=== PATIENT | female | born 1960 | race Caucasian/White ===

== ENCOUNTER 2017-04-12 17:07 | Emergency (ER) | payer BC ==
[2017-04-12 17:47] LABS: Hematocrit 39.8 % (37.0-47.0); Hemoglobin 13.9 gm/dL (12.5-16.0); Mean Cell Volume 92.1 fl (78-100); Mean Corpuscular Hemoglobin 32.2 pg (27-31); Mean Corpuscular Hgb Conc 34.9 g/dl (32-36); Mean Platelet Volume 9.7 fl (6.0-9.5); Neutrophil # 6.5 K/mm3 (1.3-6.0); Neutrophil % 65.5 % (42-75.0); Platelet Count 279 K/mm3 (150-450); Red Blood Count 4.32 M/mm3 (4.2-5.4); Red Cell Distribution Width 12.8 % (11.5-14.0); White Blood Count 9.9 K/mm3 (4.0-10.5)
[2017-04-12] MEDS ORDERED: ASPIRIN 81 MG TAB.CHEW PO ONE (17:49)
--- NOTE | 2017-04-12 17:52 | ERNOTE ---
Chest Pain/Cardiac HPI Chief Complaint: Chest Pain Time Seen by Provider: 04/12/17 17:43 Source: patient Exam Limitations: no limitations Immunizations: IMMUNIZATION HX Immunizations Up to Date Yes History of Influenza Vaccine Yes Hx Pneumococcal Vaccination No Allergies/Adverse Reactions: Allergies butorphanol tartrate [From Stadol] Allergy (Severe, Verified 02/05/16 18:45) Anaphylaxis Penicillins Allergy (Verified 02/05/16 18:45) codeine [Codeine] Adverse Reaction (Mild, Verified 02/05/16 18:45) Nausea intollerance Home Medications: HOME MEDICATIONS Metoprolol Tartrate 100 tab PO BID 08/29/12 [Last Taken Unknown] Lamotrigine BID 10/31/15 [Last Taken Unknown] Narrative: Patient was sitting in a chair after getting back from taking her mother to the doctors office when she started to have left sided chest pain, the pain was sharp and throbbing, lasted a few minutes, resolved now Date (Duration): 04/12/17 Time (Timing): 16:30 Severity/Quality: moderate, sharp Location: left chest Chest Pain Radiation: other - head Activities at Onset: none, rest Nitro Today/Relief: no nitro taken today Aspirin Treatment Today: no aspirin today Associated Symptoms: Present: dizziness. Absent: cough, shortness of breath, diaphoresis, nausea, vomiting Prior Chest Pain/Cardiac Workup: Reports: no prior cardiac workup Review of Systems - Review of Systems Constitutional: Absent: recent illness, fever Respiratory: Absent: shortness of breath Cardiology: Present: See HPI, chest pain Gastrointestinal/Abdominal: Present: See HPI, nausea Genitourinary: Present: no symptoms reported Musculoskeletal: Absent: back pain Skin: Absent: rash Neurological: Absent: headache, weakness, numbness - Patient's Past Medical History Patient History - Medical: Arthritis, Chronic Pain, Other Patient History - Cardiac/Respiratory: Hypertension Patient History - Cancer: No Hx of Cancer Patient History - Surgical Procedures: Back Surgery, Colonoscopy, Hysterectomy, Other Patient History - Other: None - Social History Living Situations: home Abuse History: No History of abuse Psych History: No pertinent hx Smoking Status: Current every day smoker Have you smoked in the past 12 months: Yes Do you dip or chew tobacco: No Patient requests Smoking Cessation Consult: No Initiate information on Smoking Cessation: No Alcohol Use: none Drug Use: none - Immunizations Immunizations Up to Date: Yes Hx Pneumococcal Vaccination: No History of Influenza Vaccine: Yes Physical Exam - Physical Exam General Appearance: Present: wd/wn, alert, no apparent distress, anxious Ears, Nose, Throat: Present: normal pharynx Respiratory: Present: no respiratory distress, normal breath sounds, no accessory muscle use, lungs clear Cardiovascular/Chest: Present: regular rate, rhythm, no murmur Gastrointestinal/Abdominal: Present: normal bowel sounds, nondistended, tenderness - mild epigastric Neurological Exam: Present: alert, oriented, normal mood/affect Skin Exam: Present: normal color, warm/dry ED Progress - Results and Orders Patient's Lab Results:: I have reviewed the patient's lab results. - Vital Signs Patient's Vital Signs:: I have reviewed the patient's vital signs. Vital Signs: Vital Signs 04/12/17 17:16 Temperature 36.2 C L Pulse Rate 61 Respiratory 15 Rate Blood Pressure 142/85 O2 Sat by Pulse 95 Oximetry - EKG EKG: NSR - sinusbrady, other - no acute changes EKG read: Interp. by me - X-Ray X-Ray #1 X-Ray: chest - hyperinflated, no acute Interpretation: Reviewed by me - Progress/Reassessment Chief Complaint: Chest Pain Progress Note-Subjective: 04/12/17 18:30 feeling better, discussed results 04/12/17 18:58 some improvement with GI cocktail but more nausea again, discussed limits of test to rule out CAD, offered admission, patient understands and would like to go home Departure - Departure Clinical Impression: Chest pain Qualifiers: Chest pain type: unspecified Qualified Code(s): R07.9 - Chest pain, unspecified Disposition: Home self-care Condition: Good Instructions: Chest Pain Observation Additional Instructions: take a daily aspirin, return to the ER at any time for worsening pain otherwise follow up with your doctor in [place] when you get back home
[2017-04-12] MEDS ORDERED: ASPIRIN 81 MG TAB.CHEW ONE (18:01)
[2017-04-12 18:09] LABS: ALT 26 U/L (19-67); AST 17 U/L (0-48); Albumin * 3.6 gm/dl (3.4-5.0); Alkaline Phosphatase * 117 U/L (50-170); Anion Gap 13.5 mmol/L (6.8-13.8); BUN/Creatinine Ratio 10.8 (9.0-21.6); Bilirubin, Total 0.4 mg/dL (0.0-1.1); Blood Urea Nitrogen 9 mg/dL (3-23); Ca. Corrected For Albumin 9.1 mg/dL (8.4-10.2); Calcium * 9.1 mg/dL (7.9-10.9); Carbon Dioxide 25.1 mmol/L (24-32.6); Chloride 104 mmol/L (97-106); Glucose * 106 mg/dL (70-110); Potassium 3.6 mmol/L (3.4-4.6); Sodium 139 mmol/L (132-142); Total Protein 7.5 gm/dL (6.2-8.2); Troponin I Less than 0.017 ng/ml (0.00-0.10)
[2017-04-12] MEDS ORDERED: SUCRALFATE 1 G/10 ML UDC PO ONE (18:30)
[2017-04-12] MEDS ORDERED: MAG HYDROX/ALUMINUM HYD/SIMETH 30 ML UDC PO ONE (18:30)
[2017-04-12] MEDS ORDERED: LIDOCAINE HCL 20 ML UDC PO ONE (18:30)
[2017-04-12 19:12] VITALS: BP 140/78
== END 2017-04-12 19:10 | disposition home or self-care (01) ==
LOC: ER 17:07
DX: R07.9 Chest pain, unspecified (principal); Z72.0 Tobacco use